=== PATIENT | female | born 1960 | race Caucasian/White ===

== ENCOUNTER 2018-09-17 21:19 | Emergency (ER) | payer SELFPAY ==
[~2018-09-17] VITALS: Ht 165.1 cm; Wt 70.3 kg
[2018-09-17 21:27] VITALS: BP 131/73
--- NOTE | 2018-09-17 22:36 | NUR ---
PT LEFT WITHOUT BEING SEEN BY ER PROVIDER
== END 2018-09-17 22:42 | disposition left against medical advice (07) ==
LOC: ER 21:19
DX: M79.645 Pain in left finger(s) (principal); Z53.21 Procedure and treatment not carried out due to patient leaving prior to being seen by health care provider
CPT/HCPCS: A4606; Z7610